=== PATIENT | female | born 1950 | race Caucasian/White ===

== ENCOUNTER 2016-05-17 09:26 | Observation (INO) | payer OTHER ==
[~2016-05-17] VITALS: Ht 167.6 cm; Wt 61.0 kg
[2016-05-17 09:36] VITALS: BP 120/66; PULSE 83; RESP 17; TEMP 98.7; O2SAT 96
[2016-05-17] MEDS ORDERED: LEVO50TA4 PO (10:05)
[2016-05-17] MEDS ORDERED: ESTR0.5T PO (10:05)
[2016-05-17] MEDS ORDERED: LOSA100T PO (10:05)
[2016-05-17] MEDS ORDERED: AMLO10TA2 PO (10:05)
[2016-05-17] MEDS ORDERED: ATEN50TA PO (10:05)
[2016-05-17] MEDS ORDERED: PRAV20TA2 PO (10:05)
[2016-05-17] MEDS ORDERED: SODIUM CHLOR 0.9% 1000 ML INJ 1,000 ML IV SCH (10:15)
[2016-05-17] MEDS ORDERED: KETOROLAC TROMETHAMINE 30 MG/ML (IVP) VIAL IV PUSH ONE (10:15)
[2016-05-17] MEDS ORDERED: ONDANSETRON HCL 4 MG/2 ML VIAL IV PUSH ONE ×2 (10:15→12:00)
--- NOTE | 2016-05-17 10:16 | PD ---
HPI Chief Complaint: Abdominal Pain Time Seen by Provider: 10:08 Travel History International Travel<30 days: No Contact w/Intl Traveler<30days: No Traveled to known affect area: No History of Present Illness HPI This 65-year-old female is complaining of right lower quadrant pain. She says the pain started last night during sleep. It came on fairly suddenly and since it started has been fairly constant. He has a history of chronic back pain and has not noted flank is worse. She has had some nausea which comes and goes. She has no history of kidney stone. She has had a hysterectomy. PFSH Past Medical History High Cholesterol: Yes Hypertension: Yes Immunizations Current: Yes Thyroid Disease: Yes : 2 Para: 0 Miscarriage: 2 Ectopic : Yes Tubal Ligation: Yes Past Surgical History Hysterectomy: Yes Social History Alcohol Use: Yes (OCC) Tobacco Use: No (FORMER) Substance Use: No Allergies-Medications (Allergen,Severity, Reaction): Coded Allergies: No Known Allergies (Unverified , 05/17/16) Reported Meds & Prescriptions Reported Meds & Active Scripts Active Reported Amlodipine (Amlodipine Besylate) 10 Mg Tab 10 Mg PO HS Losartan (Losartan Potassium) 100 Mg Tab 100 Mg PO HS Estradiol 0.5 Mg Tab 0.5 Mg PO DAILY Levothyroxine (Levothyroxine Sodium) 50 Mcg Tab 50 Mcg PO DAILY Atenolol 50 Mg Tab 50 Mg PO DAILY Pravastatin 20 Mg Tab 20 Mg PO HS Review of Systems General / Constitutional: No: Fever, Chills Eyes: No: Diploplia, Blurred Vision HENT: No: Headaches, Vertigo Cardiovascular: No: Chest Pain or Discomfort, Palpitations Respiratory: No: Cough Gastrointestinal: Positive: Nausea, Abdominal Pain Genitourinary: No: Urgency, Frequency Musculoskeletal: No: Myalgias, Arthralgias Skin: No Rash Neurologic: No: Dizziness, Syncope Endocrine: No: Heat Intolerance Physical Exam Narrative GENERAL: Well-developed female SKIN: Warm and dry. HEAD: Atraumatic. Normocephalic. EYES: Pupils equal and round. No scleral icterus. No injection or drainage. ENT: No nasal bleeding or discharge. Mucous membranes pink and moist. NECK: Trachea midline. No JVD. CARDIOVASCULAR: Regular rate and rhythm. No murmur appreciated. RESPIRATORY: No accessory muscle use. Clear to auscultation. Breath sounds equal bilaterally. GASTROINTESTINAL: Abdomen soft, there is some right lower quadrant tenderness with local guarding, nondistended. Hepatic and splenic margins not palpable. MUSCULOSKELETAL: No obvious deformities. No clubbing. No cyanosis. No edema. NEUROLOGICAL: Awake and alert. No obvious cranial nerve deficits. Motor grossly within normal limits. Normal speech. PSYCHIATRIC: Appropriate mood and affect; insight and judgment normal. Data Data Last Documented VS Vital Signs Date Time Temp Pulse Resp B/P Pulse Ox O2 Delivery O2 Flow Rate FiO2 05/17/16 12:18 85 16 126/69 97 Room Air 05/17/16 09:36 98.7 Orders Urinalysis - C+S If Indicated (05/17/16 09:39) Complete Blood Count With Diff (05/17/16 10:13) Basic Metabolic Panel (Bmp) (05/17/16 10:13) Sodium Chlor 0.9% 1000 Ml Inj (Ns 1000 M (05/17/16 10:15) Ondansetron Inj (Zofran Inj) (05/17/16 10:15) Ketorolac Inj (Toradol Inj) (05/17/16 10:15) Urine Culture (05/17/16 09:28) Ct Abd/Pel W Iv Contrast(Rout) (05/17/16 10:57) Iohexol 350 Inj (Omnipaque 350 Inj) (05/17/16 11:57) Admit Order (Ed Use Only) (05/17/16 12:54) Piperacil-Tazo 4.5 Gm Premix (Zosyn 4.5 (05/17/16 13:00) Labs Laboratory Tests Test 05/17/16 05/17/16 09:28 10:20 Urine Color YELLOW Urine Turbidity SLIGHT Urine pH 6.5 Urine Specific [place] 1.015 Urine Protein NEG mg/dL Urine Glucose (UA) NEG mg/dL Urine Ketones 40 mg/dL Urine Occult Blood TRACE Urine Nitrite NEG Urine Bilirubin NEG Urine Leukocyte Esterase NEG Urine RBC 0-3 /hpf Urine WBC 3-5 /hpf Urine Squamous Epithelial 6-8 /hpf Cells Urine Bacteria MOD /hpf Microscopic Urinalysis Comment CULTURE INDICATED White Blood Count 10.6 TH/MM3 Red Blood Count 3.76 MIL/MM3 Hemoglobin 12.2 GM/DL Hematocrit 35.1 % Mean Corpuscular Volume 93.4 FL Mean Corpuscular Hemoglobin 32.5 PG Mean Corpuscular Hemoglobin 34.8 % Concent Red Cell Distribution Width 12.3 % Platelet Count 223 TH/MM3 Mean Platelet Volume 7.1 FL Neutrophils (%) (Auto) 87.5 % Lymphocytes (%) (Auto) 5.7 % Monocytes (%) (Auto) 5.9 % Eosinophils (%) (Auto) 0.0 % Basophils (%) (Auto) 0.9 % Neutrophils # (Auto) 9.3 TH/MM3 Lymphocytes # (Auto) 0.6 TH/MM3 Monocytes # (Auto) 0.6 TH/MM3 Eosinophils # (Auto) 0.0 TH/MM3 Basophils # (Auto) 0.1 TH/MM3 CBC Comment DIFF FINAL Differential Comment Sodium Level 132 MEQ/L Potassium Level 4.1 MEQ/L Chloride Level 94 MEQ/L Carbon Dioxide Level 25.2 MEQ/L Anion Gap 13 MEQ/L Blood Urea Nitrogen 9 MG/DL Creatinine 0.50 MG/DL Estimat Glomerular Filtration 124 ML/MIN Rate Random Glucose 90 MG/DL Calcium Level 9.4 MG/DL MDM Medical Decision Making Medical Screen Exam Complete: Yes Emergency Medical Condition: Yes Medical Record Reviewed: Yes Differential Diagnosis Differential includes renal colic, UTI, appendicitis Narrative Course White count is 10,000. A CT scan with contrast was obtained. It is read as showing a retrocecal appendix tracking cephalad and medial ascending colon diameter approaches 1 cm which is concerning for mild acute appendicitis. Case discussed with Dr. Bowie. She will be transferred to [facility] Diagnosis Primary Impression: Appendicitis Admitting Information Admitting Physician Requests: Observation Reed Olmos MD May 17, 2016 10:15
[2016-05-17 10:22] LABS: BLOOD, URINE TRACE (NEG); GLUCOSE,URINE NEG (NEG); KETONE, URINE 40 mg/dL (NEG); NITRITE,URINE NEG (NEG); PH, URINE 6.5 (5.0-8.5)
[2016-05-17 10:27] LABS: URINE COLOR YELLOW (YELLW/STRAW)
[2016-05-17 10:30] LABS: BACTERIA, URINE MOD /hpf; COMMENT (UR) CULTURE INDICATED; CULTURE IF INDICATED CULTURE INDICATED; RBC, URINE 0-3 /hpf (0-3)
[2016-05-17 10:31] LABS: AUTOMATED NEUTROPHIL # 9.3 TH/MM3 (1.8-7.7); BASOPHIL # 0.1 TH/MM3 (0-0.2); BASOPHIL % 0.9 % (0.0-2.0); HEMATOCRIT 35.1 % (35.0-46.0); HEMO FLAGS DIFF FINAL; LYMPH % 5.7 % (9.0-44.0); LYMPHOCYTE # 0.6 TH/MM3 (1.0-4.8); MEAN CELL VOLUME 93.4 FL (80.0-100.0); MEAN CORPUSCULAR HEMOGLOBIN 32.5 PG (27.0-34.0); MEAN CORPUSCULAR HGB CONC 34.8 % (32.0-36.0); MONO % 5.9 % (0.0-8.0); NEUT % 87.5 % (16.0-70.0); PLATELET COUNT 223 TH/MM3 (150-450); RED BLOOD COUNT 3.76 MIL/MM3 (4.00-5.30); RED CELL DISTRIBUTION WIDTH 12.3 % (11.6-17.2); WHITE BLOOD COUNT 10.6 TH/MM3 (4.0-11.0)
[2016-05-17 10:36] LABS: POTASSIUM 4.1 MEQ/L (3.5-5.1)
[2016-05-17 11:30] LABS: BICARBONATE 25.2 MEQ/L (21.0-32.0)
[2016-05-17] MEDS ORDERED: IOHEXOL 350 MG/ML 10 ML VIAL (for RAD DIAG) IV ONE (11:57)
[2016-05-17] MEDS ORDERED: PROPOFOL 200 MG/20 ML AMP IV ONE (12:00)
[2016-05-17] MEDS ORDERED: NEOSTIGMINE 3 MG/3 ML SYR IV ONE (12:00)
[2016-05-17 12:18] VITALS: BP 126/69; PULSE 85; RESP 16; O2SAT 97
--- NOTE | 2016-05-17 12:32 | RADHPO ---
EXAM DATE/TIME: 05/17/2016 11:46 [place] COMPARISON: No previous studies available for comparison. INDICATIONS : Right lower quadrant pain. IV CONTRAST: 85 cc Omnipaque 350 (iohexol) IV ORAL CONTRAST: No oral contrast ingested. RADIATION DOSE: 6.99 CTDIvol (mGy) MEDICAL HISTORY : Hypertension. SURGICAL HISTORY : Tubal ligation. Hysterectomy. ENCOUNTER: Initial ACUITY: 1 day PAIN SCALE: 8/10 LOCATION: Right lower quadrant TECHNIQUE: Volumetric scanning of the abdomen and pelvis was performed. Using automated exposure control and ad justment of the mA and/or kV according to patient size, radiation dose was kept as low as reasonably achievable to obtain optimal diagnostic quality images. FINDINGS: LOWER LUNGS: The visualized lower lungs are clear. LIVER: Homogeneous density without lesion. There is no dilation of the biliary tree. No calcified gallston es. SPLEEN: Normal size with a well-circumscribed, 1.9 cm benign-appearing cyst in the upper pole parenchyma. PANCREAS: Within normal limits. KIDNEYS: Normal in size and shape. There is no mass, stone or hydronephrosis. ADRENAL GLANDS: Within normal limits. VASCULAR: There is no aortic aneurysm. BOWEL/MESENTERY: There is a retrocecal appendix which tracks cephalad. I do not see a tremendous amount of periappendi ceal stranding but the appendix is abnormal by size criteria measuring up to 1 cm in diameter. ABDOMINAL WALL: Within normal limits. RETROPERITONEUM: There is no lymphadenopathy. BLADDER: No wall thickening or mass. REPRODUCTIVE: Patient appears to have had a hysterectomy. INGUINAL: There is no lymphadenopathy or hernia. MUSCULOSKELETAL: Within normal limits for patient age. CONCLUSION: 1. Retrocecal appendix tracking cephalad and medial to the ascending colon. Appendiceal diameter appr oaches 1 cm which is concerning for a mild, acute appendicitis. 2. A 1.9 cm benign-appearing cyst in the upper pole of the spleen. Ernie Crooks MD on May 17, 2016 at 12:23 Board Certified Radiologist. This report was verified electronically.
[2016-05-17] MEDS ORDERED: PIPERACIL-TAZO 4.5 GM PREMIX 100 ML IV ONE (13:00)
[2016-05-17 13:05] VITALS: BP 124/74; PULSE 77; RESP 16; O2SAT 98
[2016-05-17 14:05] VITALS: BP 129/68; PULSE 72; RESP 16; TEMP 97.9; O2SAT 97
[2016-05-17] MEDS ORDERED: METOPROLOL TARTRATE 25 MG TAB PO PRN (15:00)
[2016-05-17] MEDS ORDERED: LACTATED RINGER'S 1000 ML IV SCH (15:00)
[2016-05-17] MEDS: SODIUM CHLORID 0.9% 500 ML IV SCH (15:00)
[2016-05-17] MEDS ORDERED: INSULIN HUMAN REGULAR 1,000 UNITS/10 ML VIAL SQ PRN (15:00)
[2016-05-17] MEDS ORDERED: BUPIVACAINE/EPINEPHRINE 0.5% 50 ML VIAL ONE (15:11)
[2016-05-17] MEDS: SODIUM CHLOR 0.9% 1000 ML INJ 1,000 ML IV SCH ×2 (15:18→23:18)
[2016-05-17] MEDS ORDERED: DICLOFENAC SODIUM 37.5 MG/ML VIAL IV PUSH ONE (15:28)
[2016-05-17] MEDS ORDERED: SODIUM CHLORIDE 0.9% FLUSH 10 ML FLUSH IV FLUSH PRN (15:30)
[2016-05-17] MEDS ORDERED: METOCLOPRAMIDE HCL 10 MG/2 ML VIAL IV PRN (15:30)
--- NOTE | 2016-05-17 15:50 | HHI.PR ---
Immediate Post Op Note Procedure Date: May 17, 2016 Pre Op Diagnosis: acute appendicitis Post Op Diagnosis: same Surgeon: Uriel Bowie MD Consulting Psychologist(s): see or sheet Procedure: lap appy Findings: distended appendix Complications: none Specimen(s) removed: appendix Estimated blood loss: 5cc Anesthesia: General Drains: None Patient to: PACU Patient Condition: Good Uriel Bowie MD May 17, 2016 15:50
[2016-05-17] MEDS ORDERED: ACETAMINOPHEN/HYDROcodone 325 MG/5 MG TAB PO PRN (16:00)
[2016-05-17] MEDS ORDERED: MORPHINE SULFATE 4 MG/ML INJ IV PUSH PRN (16:00)
[2016-05-17] MEDS ORDERED: fentaNYL CITRATE 250 MCG/5 ML AMP ONE (16:52)
[2016-05-17] MEDS ORDERED: MIDAZOLAM HCL 2 MG/2 ML VIAL ONE (16:52)
[2016-05-17 17:00] VITALS: BP 110/57; PULSE 68; RESP 18; TEMP 97.9; O2SAT 96
[2016-05-17] MEDS ORDERED: DO NOT ADM ANY ANTICOAGULANT DRUGS XX PRN (17:30)
[2016-05-17 20:13] VITALS: BP 119/65; PULSE 71; RESP 17; TEMP 97.9; O2SAT 96
[2016-05-17] MEDS: SODIUM CHLORIDE 0.9% FLUSH 10 ML FLUSH IV FLUSH SCH (21:00)
--- NOTE | 2016-05-17 22:28 | MH ---
cc: MARCELA JIMENEZ MD DATE OF ADMISSION: 05/17/2016 CHIEF COMPLAINT Abdominal pain, appendicitis. HISTORY OF PRESENT ILLNESS The patient is a 65-year-old female who presented with right lower quadrant pain. She states the pain started last night and woke her up from sleep and continued to progress and get worse. She stated the pain localized to the right lower quadrant, it was 8/10 in severity, currently 5/10 in severity, worse with movement, better with lying still. The pain is a sharp pain and she also had some nausea but no vomiting with this. She came to the emergency department for further evaluation including a CT scan showing concern for acute appendicitis; therefore, Surgery was called for further management and evaluation. On my exam, the patient states somewhat significant pain. She is resting comfortably, she is afebrile and states she is not hungry at this time. PAST MEDICAL HISTORY 1. Hypercholesteremia. 2. Hypertension. 3. Thyroid disease. 4. History of ectopic . PAST SURGICAL HISTORY 1. Hysterectomy. 2. Ruptured tubal ectopic . 3. Tubal ligation. ALLERGIES THE PATIENT HAS NO KNOWN DRUG ALLERGIES. SOCIAL HISTORY Denies smoking. Denies IVDA. Occasional ETOH. MEDICATIONS Seen EMR. FAMILY HISTORY Denies hypertension or diabetes. REVIEW OF SYSTEMS GENERAL: Denies fevers or chills. HEENT: Denies eye pain or ear pain. CARDIOVASCULAR: Denies chest pain or palpitation. RESPIRATORY: Denies cough or wheeze. GASTROINTESTINAL: Complained of nausea and abdominal pain. Denies vomiting. GENITOURINARY: Denies dysuria or hematuria. ENDOCRINE: Denies polyuria or polydipsia. SKIN: Denies rash or lesions. MUSCULOSKELETAL: Denies myalgias or arthralgias. ENDOCRINE: Denies heat or cold intolerance. PHYSICAL EXAMINATION GENERAL: The patient in no acute distress. VITAL SIGNS: Temperature 98.7, pulse 85, respirations 16, blood pressure 126/69, saturation 94%. HEENT: PERRLA. EOMI. Pupils equal and reactive. NECK: Supple. Trachea midline. No JVD. CARDIOVASCULAR: Regular rate and rhythm. S1, S2. RESPIRATORY: Clear to auscultation, bilateral expansion. ABDOMEN: A well-healed lower surgical scar. Positive tenderness to palpation right lower quadrant. Positive guarding. No rebound. MUSCULOSKELETAL: No edema. No clubbing. NEUROLOGIC: GCS of 15. Awake, alert, oriented. PSYCHIATRIC: Appropriate mood and affect. LABORATORY/DIAGNOSTIC DATA WBC 10.6, hemoglobin 12.2, hematocrit 35.1, platelets 223. Sodium 132, potassium 4.1, chloride 94, CO2 25, BUN 9, creatinine 0.5, calcium 9.4. CT reviewed by myself. CT abdomen and pelvis: Retrocecal appendix, CT PELVIS Retrocecal appendix, thickened wall approximately 1 cm diameter, mild acute appendicitis. ASSESSMENT The is 65 with acute appendicitis. PLAN After a full clinical, radiologic and laboratory workup, the patient with above-named issue including acute appendicitis. At this point, we will give her IV antibiotics, pain control, keep her n.p.o., IV fluids. She will need to go to the operating room for a laparoscopic appendectomy possible open. This was discussed with the patient in detail. She states understanding and would like to proceed with operative intervention. MD REHAN Maldonado/ANASTASIA /9:34 PM /10:00 PM
[2016-05-18 00:24] VITALS: BP 98/55; PULSE 76; RESP 17; TEMP 97.2; O2SAT 95
[2016-05-18 00:34] VITALS: O2SAT 91
[2016-05-18 04:44] VITALS: BP 109/59; PULSE 72; RESP 16; TEMP 97.8; O2SAT 95
--- NOTE | 2016-05-18 07:39 | HHI.PR ---
Subjective Subjective Notes no acute issues, post op nausea better, pain controlled, oob Objective Vitals/I&O Vital Signs Date Time Temp Pulse Resp B/P Pulse Ox O2 Delivery O2 Flow Rate FiO2 05/18/16 04:44 97.8 72 16 109/59 95 05/17/16 17:15 Room Air 05/17/16 16:45 2 Labs Laboratory Tests Test 05/17/16 05/17/16 09:28 10:20 Urine Color YELLOW Urine Turbidity SLIGHT Urine pH 6.5 Urine Specific [place] 1.015 Urine Protein NEG Urine Glucose (UA) NEG Urine Ketones 40 Urine Occult Blood TRACE Urine Nitrite NEG Urine Bilirubin NEG Urine Leukocyte Esterase NEG Urine RBC 0-3 Urine WBC 3-5 Urine Squamous Epithelial 6-8 Cells Urine Bacteria MOD Microscopic Urinalysis Comment CULTURE INDICATED White Blood Count 10.6 Red Blood Count 3.76 Hemoglobin 12.2 Hematocrit 35.1 Mean Corpuscular Volume 93.4 Mean Corpuscular Hemoglobin 32.5 Mean Corpuscular Hemoglobin 34.8 Concent Red Cell Distribution Width 12.3 Platelet Count 223 Mean Platelet Volume 7.1 Neutrophils (%) (Auto) 87.5 Lymphocytes (%) (Auto) 5.7 Monocytes (%) (Auto) 5.9 Eosinophils (%) (Auto) 0.0 Basophils (%) (Auto) 0.9 Neutrophils # (Auto) 9.3 Lymphocytes # (Auto) 0.6 Monocytes # (Auto) 0.6 Eosinophils # (Auto) 0.0 Basophils # (Auto) 0.1 CBC Comment DIFF FINAL Differential Comment Sodium Level 132 Potassium Level 4.1 Chloride Level 94 Carbon Dioxide Level 25.2 Anion Gap 13 Blood Urea Nitrogen 9 Creatinine 0.50 Estimat Glomerular Filtration 124 Rate Random Glucose 90 Calcium Level 9.4 Date/Time Procedure Status Source Growth 05/17/16 09:28 Urine Culture Received Urine Clean Catch Pending Cardiovascular: Regular Lungs: Clear Abdomen: Other (incisions well healing, c/d/i soft mild ttp) A/P Assessment and Plan POD 1 Lap appy PLAN OOB pain control po reg diet dvt ppx d/c home later today Uriel Bowie MD May 18, 2016 07:39
[2016-05-18] MEDS: SODIUM CHLORID 0.9% 500 ML IV SCH (07:40)
[2016-05-18 08:00] VITALS: BP 125/77; PULSE 97; RESP 17; TEMP 97.5; O2SAT 97
[2016-05-18] MEDS: SODIUM CHLORIDE 0.9% FLUSH 10 ML FLUSH IV FLUSH SCH (09:00)
[2016-05-18] MEDS: SODIUM CHLOR 0.9% 1000 ML INJ 1,000 ML IV SCH ×2 (09:30→09:43)
[2016-05-18 12:00] VITALS: BP 96/50; PULSE 76; RESP 17; TEMP 97.3; O2SAT 97
[2016-05-18] MEDS ORDERED: NORC5TAB PO (12:21)
--- NOTE | 2016-05-19 11:24 | EKG ---
Date Performed: 05/17/2016 Time Performed: 12:22:54 PTAGE: 65 years EKG: Sinus rhythm Normal ECG PREVIOUS TRACING : 12/08/1993 06.56 DOCTOR: Jabier Oro Interpretating Date/Time 05/19/2016 11:21:59
--- NOTE | 2016-05-21 12:51 | MP ---
cc: MARCELA BOWIE MD DATE OF SURGERY May 17, 2016 PREOPERATIVE DIAGNOSIS Acute appendicitis. POSTOPERATIVE DIAGNOSIS Acute appendicitis, nonperforated. SURGEON Dr. Marcela Bowie [employer] See OR sheet PROCEDURE PERFORMED Laparoscopic appendectomy. ANESTHESIA GETA. IV FLUIDS 300 cc. ESTIMATED BLOOD LOSS 5 cc. DRAINS None. COMPLICATIONS None. WOUND CLASSIFICATION Clean, contaminated. SPECIMENS Appendix sent for pathology. INDICATION The patient is 65-year-old female who presents with acute onset of right lower quadrant pain. The patient stated the pain started suddenly, increased in intensity and migrated to the right lower quadrant. She came into the emergency department for further evaluation including CT scan with findings of inflamed, thickened appendix along with white count of 10,000. Decision was made for operative intervention including a laparoscopic appendectomy. DETAILS OF PROCEDURE The patient was taken to the operating suite, placed in supine position. She was prepped and draped in the usual sterile fashion after induction of general endotracheal anesthesia. A brief time-out was done stating correct patient, procedure, surgical site. We were all in agreement with this. Attention was first directed to the umbilicus where a small stab/omar incision was made infraumbilically, local anesthetic injected. First needle used and placed intraabdominally, confirmation with saline drop test. The abdomen was insufflated to 15-mm pneumoperitoneum. The Veress needle was changed for a 5-mm scope. After cursory inspection and no evidence of injury, there is noted be an adhesion where a previous lower midline scar was containing omentum. Two other ports placed, one in the left lower quadrant, 12-mm, followed by a suprapubic 5-mm port. The midline adhesions were taken down with scissor and electro Bovie cautery. The patient was placed in Trendelenburg and airplaned to the left. On inspection of the right lower quadrant, the appendix was noted to be retrocecal and noted to be thickened and indurated. It was identified. Some adhesions were taken down bluntly and the base of the appendix was identified, grasped. We used electro Bovie cautery to create a window in the mesoappendix. A 35 Endo-JOSE CARLOS stapler was obtained to transect the base of the appendix. The mesoappendix was then mobilized and a 35-mm Endo-JOSE CARLOS stapler x 2 loads was used to take down the mesoappendix. The appendix was placed in EndoCatch bag. The appendix was removed through the left lower quadrant. Examination of the staple line noted very minimal bleeding. A Ray-Nolvia was placed intraabdominally and electro Bovie cautery was used with [place] to provide hemostasis. The Ray-Nolvia was removed. The abdomen was then desufflated. The left lower quadrant port was closed with a 0 Vicryl suture. Local anesthetic injected at all port sites. 4-0 Monocryl was used for subcuticular suture closure of ports. The patient tolerated the procedure well. There was no intraoperative complication. All lap and instrument counts were correct at the end of the procedure. The patient was extubated and taken to the PACU. MD REHAN Maldonado/QIANA /6:21 PM /12:40 PM
== END 2016-05-18 13:06 | disposition home or self-care (01) ==
LOC: PHED 09:26 → PHEDA 12:56 → HSDI 14:48 → N07B 17:34
PROVIDERS: ADMIT Surgery; ATTEND Surgery
DX: K35.80 Unspecified acute appendicitis (principal); I10 Essential (primary) hypertension; E07.9 Disorder of thyroid, unspecified; E78.00 Pure hypercholesterolemia, unspecified
CPT/HCPCS: 74177; 80048; 81001; 85025; 87086; 88304; 93005; 96361; 96374; 96375; G0378; J1130; J1885; J2250; J2405; J2543; J2710; J2765; J3010; J7030; J7120; Q9967